=== PATIENT | female | born 1980 | race Two or more races ===

== ENCOUNTER 2024-05-13 22:27 | Inpatient (IN) | payer OTHER ==
[2024-05-13 23:33] VITALS: BMI 24.7
[2024-05-14] MEDS ORDERED: DICYCLOMINE HCL 10 MG CAPSULE PO PRN (01:15)
[2024-05-14] MEDS ORDERED: MAG HYDROX/AL HYDROX/SIMETH 30 ML UNIT-DOSE CUP PO PRN (01:15)
[2024-05-14] MEDS ORDERED: POLYETHYLENE GLYCOL (HEALTHYLAX) 3350 17 GM PACKET PO PRN (01:15)
[2024-05-14] MEDS ORDERED: BENZOCAINE/MENTHOL (CHLORASEPTIC ) LOZENGE MM PRN (01:15)
[2024-05-14] MEDS ORDERED: ONDANSETRON *ODT* 4 MG TABLET SL PRN (01:15)
[2024-05-14] MEDS ORDERED: guaiFENesin 600 MG TABLET.ER (FP) PO PRN (01:15)
[2024-05-14] MEDS ORDERED: NALOXONE (NARCAN) HCL 4 MG/0.1 ML SPRAY NS PRN (01:15)
[2024-05-14] MEDS ORDERED: LOPERAMIDE HCL 2 MG CAPSULE PO PRN (01:15)
[2024-05-14] MEDS ORDERED: BISMUTH SUBSALICYLATE 524 MG/30 ML PO PRN (01:15)
[2024-05-14] MEDS ORDERED: MAGNESIUM HYDROX 2400MG/30ML ORAL SUSPENSION 30 ML CUP PO PRN (01:15)
[2024-05-14] MEDS ORDERED: BENZONATATE 200 MG CAPSULE PO PRN (01:15)
[2024-05-14] MEDS ORDERED: IBUPROFEN 400 MG TABLET (FP) PO PRN (01:15)
[2024-05-14] MEDS ORDERED: methaDONE HCL 10 MG TABLET (FOR DETOX USE ONLY) ONE (01:39)
[2024-05-14] MEDS: methaDONE HCL 10 MG TABLET (FOR DETOX USE ONLY) PO ONE (01:40)
[2024-05-14] MEDS ORDERED: IBUPROFEN 600 MG TABLET (FP) PO ONE (01:44)
[2024-05-14] MEDS: IBUPROFEN 600 MG TABLET (FP) PO PRN (01:44)
[2024-05-14] MEDS: METHOCARBAMOL 500 MG TABLET PO PRN (08:45)
[2024-05-14] MEDS: hydrOXYzine PAMOATE 25 MG CAPSULE (FP) PO PRN ×2 (08:45→15:50)
[2024-05-14] MEDS: NICOTINE 21 MG/24 HOURS TOPICAL PATCH TD SCH (09:21)
[2024-05-14] MEDS: PRENATAL VITAMINS W/ FOLIC ACID TABLET (FP) PO SCH (09:21)
[2024-05-14] MEDS: cloNIDine HCL 0.1 MG TABLET PO PRN (09:37)
[2024-05-14] MEDS: ARIPiprazole 5 MG TABLET PO SCH (13:59)
[2024-05-14] MEDS: NICOTINE POLACRILEX 2 MG GUM BUC PRN (16:52)
[2024-05-14] MEDS: ACETAMINOPHEN 325 MG TABLET (FP) PO PRN (16:54)
[2024-05-14] MEDS ORDERED: MELATONIN 5 MG TABLETS PO SCH (22:00)
[2024-05-14] MEDS: THIAMINE 100 MG TABLET PO SCH (22:40)
[2024-05-14] MEDS: SUVOREXANT 10 MG TABLET PO PRN (22:40)
[2024-05-15] MEDS: methaDONE 40 MG, methaDONE 10 MG PO ONE (09:02)
[2024-05-15 09:56] LABS: HEMATOCRIT 36.1 % (32.4-45.2); HEMOGLOBIN 11.7 GM/dL (10.7-15.3); MCH 27.1 pg (25.7-33.7); MCHC 32.4 g/dl (32.0-36.0); MEAN CELL VOLUME 83.7 fl (80-96); MEAN PLT VOLUME 8.1 fl (7.5-11.1); PLATELET COUNT 506 10^3/uL (134-434); RBC 4.31 M/mm3 (3.60-5.2); RDW 16.5 % (11.6-15.6); WHITE BLOOD COUNT 7.4 K/mm3 (4.0-10.0)
[2024-05-15 10:21] LABS: POTASSIUM 3.9 mmol/L (3.5-5.1)
[2024-05-15 10:24] LABS: ALBUMIN 3.5 g/dl (3.4-5.0); BLOOD UREA NITROGEN 13.9 mg/dL (7-18)
[2024-05-15 10:28] LABS: CREATININE 0.6 mg/dL (0.55-1.3)
[2024-05-15 10:29] LABS: BILIRUBIN,TOTAL 0.2 mg/dL (0.2-1); TOT PROT 7.2 g/dl (6.4-8.2)
[2024-05-15] MEDS: ASPIRIN 81 MG CHEWABLE TABLETS PO SCH (10:53)
[2024-05-16] MEDS: methaDONE 40 MG, methaDONE 20 MG PO ONE (09:04)
[2024-05-16] MEDS ORDERED: methaDONE HCL 10 MG TABLET (FOR DETOX USE ONLY) PO ONE (10:00)
[2024-05-17] MEDS ORDERED: cloNIDine HCL 0.1 MG TABLET PO PRN
[2024-05-17] MEDS: methaDONE 40 MG, methaDONE 30 MG PO ONE (09:53)
[2024-05-18] MEDS: ARIPiprazole 10 MG TABLET PO SCH (09:02)
[2024-05-18] MEDS: methaDONE HCL 40 MG DISPERSABLE TABLET PO ONE (09:03)
[2024-05-18] MEDS ORDERED: methaDONE HCL 10 MG TABLET (FOR DETOX USE ONLY) PO ONE (10:00)
[2024-05-18] MEDS: MINERAL OIL/PET HY-PHL TOPICAL OINTMENT 454 GM JAR TP SCH (13:15)
[2024-05-19] MEDS: methaDONE 80 MG, methaDONE 10 MG PO ONE (09:41)
[2024-05-19 10:39] VITALS: BP 110/70; PULSE 79; RESP 18; TEMP 97.6
[2024-05-19] MEDS: NALOXONE (NYS OPIOID OVERDOSE PROGRAM) 4 MG/0.1 ML SPRAY NS PRN (11:46)
== END 2024-05-19 10:00 | disposition home or self-care (01) | DRG 773 ==
LOC: YASAS 22:27 → Y6N 05-14 01:34
PROVIDERS: ADMIT Allergy & Immunology; ATTEND Surgery
PROC: HZ2ZZZZ Detoxification Services for Substance Abuse Treatment (ICD-10-PCS; principal; 2024-05-14)
DX: F11.23 Opioid dependence with withdrawal (principal); F14.20 Cocaine dependence, uncomplicated; F17.210 Nicotine dependence, cigarettes, uncomplicated; F25.0 Schizoaffective disorder, bipolar type; F19.282 Other psychoactive substance dependence with psychoactive substance-induced sleep disorder; F19.280 Other psychoactive substance dependence with psychoactive substance-induced anxiety disorder; F19.24 Other psychoactive substance dependence with psychoactive substance-induced mood disorder; F32.A Depression, unspecified; F41.9 Anxiety disorder, unspecified; F43.10 Post-traumatic stress disorder, unspecified; F60.3 Borderline personality disorder; D75.839 Thrombocytosis, unspecified
CPT/HCPCS: 36415; 71046-TC-FY; 80053; 80305; 80307; 81025; 85027; 86780; 93005; 93010